=== PATIENT | female | born 1955 | race Caucasian/White ===

== ENCOUNTER 2016-08-08 16:58 | Inpatient (IN) | payer MEDICARE, OTHER ==
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
--- NOTE | ~2016-08-08 | CR72 ---
[facility] A Service of [facility] & [facility] RADIOLOGY TEXT RESULTS PATIENT: JANKI VARGHESE LOCATION: [facility] 320-01 : 55 UNIT #: [id number] AGE: [address]: Kelly Ybarra MD SEX: F ORDER DR: [id number] [facility] [address] [facility]. [place], [place] [address] [id number] E MR#: [id number] Acc #: [id number] NAME: JANKI VARGHESE : 1955 SEX: F STUDY DATE/TIME: 08/08/2016 15:07 UNIT: [facility] ROOM: STUDY DESCRIPTION: CR Chest Single View Portable Attending Physician: Dharmesh Frazier M.D. Referring Physician: No Primary Care Physician Ordering Physician: Dharmesh Frazier M.D. Primary Care Physician: No Primary Care Physician MEDICAL IMAGING REPORT This report is preliminary unless electronic signature is present EXAM Portable chest x-ray 08/08/2016 HISTORY Altered mental status. Getting worse. Weakness. Duration 4 weeks. AP radiograph of the chest is presented. COMPARISON STUDIES Comparison 07/30/2016 and 03/29/2016. FINDINGS Right side chest port unchanged. Heart and mediastinum normal in size and contour. Lung volumes moderate. Band-like area of density at the right lung base favored to represent chronic scarring seen in slightly different obliquity than on the prior studies. There is no compelling evidence of pneumonia or edema. No pleural effusion or pneumothorax. No suspicious nodule. Bowel gas pattern in upper abdomen unremarkable. Note made of surgical clips superimposed over the left paracentral upper thorax. Stable. Dictated by... Nba Parry M.D. THIS IS AN ELECTRONICALLY VERIFIED REPORT Nba Parry M.D. at 08/09/2016 12:32 PM Johnny TD: 08/08/2016 18:22 JOB #: [id number] MEDICAL IMAGING REPORT COPY
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
--- NOTE | ~2016-08-08 | CT71 ---
[facility] A Service of [facility] & [facility] RADIOLOGY TEXT RESULTS PATIENT: JANKI VARGHESE LOCATION: [facility] 320-01 : 55 UNIT #: [id number] AGE: [address]: Kelly Ybarra MD SEX: F ORDER DR: [id number] [facility] [address] [facility]. [place], [place] [address] [id number] I MR#: [id number] Acc #: [id number] NAME: JANKI VARGHESE. : 1955 SEX: F STUDY DATE/TIME: 08/10/2016 8:42 UNIT: [facility] ROOM: 320 STUDY DESCRIPTION: CT Head Wo Contrast Attending Physician: Kelly Ybarra M.D. Referring Physician: No Primary Care Physician Ordering Physician: Kt Stover M.D. Primary Care Physician: No Primary Care Physician MEDICAL IMAGING REPORT This report is preliminary unless electronic signature is present EXAM Head CT without HISTORY Confusion since 08/08/2016, cough since 08/08/2016. History of lymphoma, diabetes, stomach cancer. COMMENT Routine noncontrast head CT is reviewed. This CT exam was performed with one or more of the following radiation dose reduction techniques: automatic exposure control, adjustment of mA and/or kV according to patient size, and iterative reconstruction. COMPARISON There is comparison study from 07/30/2016. FINDINGS The mastoid air cells are clear. The visualized paranasal sinuses are clear. There is no evidence for acute intracranial hemorrhage or extraaxial fluid collection. The ventricles are normal in size and configuration and the rangel-white junction is well-maintained. A few small foci of low attenuation in the basal ganglia are likely tiny lacunes or prominent perivascular spaces. There is no intracranial mass effect. Basilar cisterns are patent. Noncontrast study would not be sensitive for intracranial metastatic disease but there is no acute cortical infarct suspected. IMPRESSION 1. No acute intracranial abnormality. STAT * RESULT ST[facility]. [facility] A Service of [facility] & [facility] RADIOLOGY TEXT RESULTS PATIENT: JANKI VARGHESE LOCATION: [place] [address]- : [birth year] UNIT #: [id number] AGE: [address]: Kelly Ybarra MD SEX: F ORDER DR: Dictated by... Elli Newman M.D. THIS IS AN ELECTRONICALLY VERIFIED REPORT Elli Newman M.D. at 08/10/2016 10:58 AM [place] TD: 08/10/2016 09:38 JOB #: [id number] MEDICAL IMAGING REPORT COPY
--- NOTE | ~2016-08-08 | EKG ---
PATIENT: JANKI VARGHESE UNIT #: [id number] Ventricular Rate: 71 BPM Atrial Rate: 71 BPM P-R Interval: 156 ms QRS Duration: 90 ms Q-T Interval: 394 ms QTC Calculation(Bezet): 428 ms P [place]: 9 degrees Calculated R [place]: 5 degrees Calculated T [place]: 30 degrees Diagnosis Line: Normal sinus rhythm Diagnosis Line: Normal ECG Diagnosis Line: When compared with ECG of 30-JUL-2016 14:49, Diagnosis Line: No significant change was found Diagnosis Line: Confirmed by LYLY OCONNELL MD ([id number]) on 08/09/2016 Diagnosis Line: 6:22:33 PM INTERPRETING MD: ANISH SALCIDO
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
--- NOTE | ~2016-08-08 | CT57 ---
[facility] A Service of [facility] RADIOLOGY TEXT RESULTS PATIENT: JANKI VARGHESE LOCATION: [facility] 320-01 : 55 UNIT #: [id number] AGE: [address]: Kelly Ybarra MD SEX: F ORDER DR: [id number] [facility] [address] [facility]. [place], [place] [address] [id number] I MR#: [id number] Acc #: [id number] NAME: JANKI VARGHESE : 1955 SEX: F STUDY DATE/TIME: 08/10/2016 8:51 UNIT: [address] ROOM: [facility] STUDY DESCRIPTION: CT Chest Wo Cont Attending Physician: Kelly Ybarra M.D. Referring Physician: Primary Care Physician No Ordering Physician: Kt Stover M.D. Primary Care Physician: Primary Care Physician No MEDICAL IMAGING REPORT This report is preliminary unless electronic signature is present EXAM CT chest without contrast 08/10/2016 PROCEDURE Axial unenhanced chest CT with multiplanar reformats. COMPARISON 10/15/2014. HISTORY Cough since 08/08/2016. TECHNIQUE This CT examination was performed with one or more of the following radiation dose reduction techniques: automatic exposure control, adjustment of mA and/or kV according to patient size, and iterative reconstruction. FINDINGS Redemonstrated mostly linear scarring with some slight bronchiectasis along the posterior border of the right major fissure extending to the right posterolateral lung base. That appears stable as does some scarring in the right middle lobe, and there is some atelectasis or scarring at the posterior left base as well but there is no consolidation, effusion, pneumothorax or suspicious nodule. There is no mediastinal mass or adenopathy, though there is a partially calcified area in the left thyroid unchanged since the prior CT. The thoracic aorta is normal in caliber. Images of the upper abdomen are unremarkable. The bony structures are unremarkable. Intraspinal catheter remains in place. [facility] A Service of [facility] RADIOLOGY TEXT RESULTS PATIENT: JANKI VARGHESE LOCATION: [facility] 320-01 : 55 UNIT #: [id number] AGE: [address]: Kelly Ybarra MD SEX: F ORDER DR: IMPRESSION No acute pulmonary parenchymal abnormality. No acute infiltrate, effusion, pneumothorax or suspicious nodule. There are some chronic changes and/or areas of scarring but no acute findings. Dictated by... Markie Sarah M.D. THIS IS AN ELECTRONICALLY VERIFIED REPORT Markie Sarah M.D. at 08/13/2016 4:32 PM LANCE/marly TD: 08/10/2016 14:05 JOB #: [id number] MEDICAL IMAGING REPORT COPY
--- NOTE | ~2016-08-08 | EKG ---
PATIENT: JANKI VARGHESE UNIT #: [id number] Ventricular Rate: 75 BPM Atrial Rate: 75 BPM P-R Interval: 132 ms QRS Duration: 82 ms Q-T Interval: 370 ms QTC Calculation(Bezet): 413 ms P [place]: 7 degrees Calculated R [place]: 10 degrees Calculated T [place]: 48 degrees Diagnosis Line: Normal sinus rhythm Diagnosis Line: Normal ECG Diagnosis Line: When compared with ECG of 08-AUG-2016 15:00, Diagnosis Line: No significant change was found Diagnosis Line: Confirmed by SUSANA GOMEZ MD ([id number]) on Diagnosis Line: 08/14/2016 4:07:55 PM INTERPRETING MD: JASON SALCIDO
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
[2016-08-08 16:50] LABS: BASOPHIL% 0.4 % (0-2.5); EOSINOPHIL# 0.2 X10e3 (0-0.7); EOSINOPHIL% 1.7 % (0.0-7.0); HEMATOCRIT 33.9 % (35.0-45.0); HEMOGLOBIN 11.1 gm/dL (12.0-16.0); LYMPHOCYTE# 2.1 X10e3 (1.0-3.5); LYMPHOCYTE% 20.9 % (17.0-45.0); MEAN CELL VOLUME 89.6 FL (83-96); MEAN CORPUSCULAR HEMOGLOBIN 29.4 PG (28-34); MEAN CORPUSCULAR HGB CONC 32.8 g/dL (30-36); MEAN PLATELET VOLUME 8.4 FL (6.5-11.5); MONOCYTE# 0.7 X10e3 (0-1.0); MONOCYTE% 6.7 % (3.0-12.0); NEUTROPHIL# 7.2 X10e3 (1.5-7.1); NEUTROPHIL% 70.3 % (40-75); PLATELET COUNT 242 X10e3 (140-420); RED BLOOD COUNT 3.78 X10e (3.90-5.30); RED CELL DISTRIBUTION WIDTH 15.4 % (11.0-15.5); WHITE BLOOD COUNT 10.2 X10e3 (4.0-10.5)
[2016-08-08 16:52] LABS: DIFF IND NO
[~2016-08-08 16:58] MED LIST: ACETAMINOPHEN PO; ALBUTEROL2.5 MG/0.5 IH; AMITIZA24 MCG PO; AMITRIPTYLINE150 MG PO; AMITRYPTYLINE; AMITRYPTYLINE PO; AMOXICILLIN PO; ANTIVERT PO; ARIXTRA2.5 MG/0.5 INJ; ASPIRIN PO; ASPIRINEC PO; ATIVAN0.5 MG PO; BACTRIM DS TABL1 TA1 PO; BONIVA150 MG PO; BUSPAR PO; BUSPAR5 MG PO; CALCIUM + D 6001 TA1 PO; CALCIUM 500 + D1 TAB PO; CALTRATE PLUS T1 TAB PO; CIPRO PO; CITALOPRAM HBR40 MG PO; CLARITIN10 M2 PO; COMBIVENT U/D3 M1 NEB; COMBIVENT U/D3 M3 INH; CYMBALTA PO; CYMBALTA30 MG PO; DICYCLOMINE HCL10 MG PO; DIFLORASONE TOP; DILAUDID; DILAUDID PAIN PUMP; DILAUDID SUBQ; EFFEXOR; FERRO-TIME325 MG PO; FISH OIL 1,0001 CAP PO; FISH OIL 1,0001 EACH PO; FISH OIL500 MG PO; FLEXERIL10 MG PO; FLONASE16 GM; GABAPENTIN400 M2 PO; GABAPENTIN600 MG PO; GABAPENTIN800 MG PO; HYDROCODONE-APA1 T30 PO; KEFLEX250 M1 PO; KLONOPIN; KLONOPIN PO; KLONOPIN0.5 MG PO; KLONOPIN1 MG PO; LEVAQUIN PO; LEVAQUIN250 MG PO; LEXAPRO; LEXAPRO PO; LEXAPRO20 MG PO; LIPITOR20 MG DOB; LORTAB 2.5/5001 TAB PO; METFORMIN HCL1000 M1 PO; METFORMIN HCL500 M1 PO; METFORMIN PO; MORPHINE; MULTI VITAMIN1 EACH PO; MULTI-VIT/MIN P1 TAB PO; NEURONTIN; NEURONTIN300 MG PO; NEXIUM PO; NICOTINE TRANSD21 MG EXT; NITROGYLCERIN SUBLINGUAL; NORCO 10-325 TA1 TAB PO; NORCO 5/325 TAB1 TAB PO; NORCO 7.5/325 T1 TAB PO; OMNICEF300 M1 PO; OXYCONTIN PO; OXYGEN; PEN-VEE K PO; PERCOCET10 PO; PHENERGAN PO; PHENERGAN25 M1 PO; PHENERGAN25 MG PO; PRAVACHOL PO; PRAVACHOL80 MG PO; PRAVASTATIN SOD20 MG PO; PRAVASTATIN SOD40 MG PO; PREDNISONE PO; PREDNISONE10 MG PO; PRILOSEC PO; PRILOSEC40 MG PO; PROMETHAZINE HC25 MG PO; PROTONIX PO; REMERON PO; SYMBICORT INH; VOLTAREN50 MG PO; VORICONAZOLE200 MG PO; XANAX0.5 M1 DOB; XANAX0.5 MG PO
[2016-08-08 17:04] LABS: PARTIAL THROMBOPLASTIN TIME 27.1 SECONDS (23.5-31.3); PROTHROMBIN TIME (PATIENT) 10.7 SECONDS (9.6-11.5)
[2016-08-08 17:13] LABS: ALBUMIN SERUM 3.3 g/dL (3.5-5.0); ALKALINE PHOSPHATASE 105 U/L (32-92); ALT (SGPT) 29 U/L (10-40); AST (SGOT) 33 U/L (10-42); BILIRUBIN, DIRECT 0.1 mg/dL (0.0-0.2); BILIRUBIN,INDIRECT 0.2 mg/dL (0.0-0.9); BILIRUBIN,TOTAL 0.3 mg/dL (0.2-2.0); BLOOD UREA NITROGEN 15 mg/dL (9-23); BUN/CREATININE RATIO 13.63; CALCIUM SERUM 8.4 mg/dL (8.4-10.2); CARBON DIOXIDE 29 mmol/L (22-31); CHLORIDE 103 mmol/L (100-111); CREATININE SERUM 1.1 mg/dL (0.6-1.4); GLOM FILT RATE Estimated 53.7 mL/min (>60); GLUCOSE FASTING 84 mg/dL (70-110); SALICYLATE <4.0 mg/dL; SODIUM 139 mmol/L (135-145)
[2016-08-08 17:16] LABS: ACETAMINOPHEN <10 ug/mL; ALCOHOL BLOOD <5 mg/dL (0)
[2016-08-08 18:58] LABS: URINE SOURCE CLEAN CATCH
[2016-08-08 19:04] LABS: URINE APPEARANCE TURBID; URINE BILIRUBIN NEG (NEG); URINE BLOOD 2+ (NEG); URINE COLOR YELLOW; URINE GLUCOSE 250 MG/DL (NEG); URINE KETONE NEG (NEG); URINE LEUKOCYTE ESTERASE 3+ (NEG); URINE NITRATE NEG (NEG); URINE PROTEIN 1+ (NEG); URINE SPECIFIC GRAVITY 1.019 (1.003-1.035); URINE UROBILINOGEN 0.2 MG/DL (NEG)
[2016-08-08 19:06] LABS: CULTURE INDICATED? YES; URINE BACTERIA AUWI NEG (NEGATIVE); URINE SQUAMOUS EPITHELIAL CELL FEW /[HPF]; UWBCS1 AUWI INNUM (0-5)
[2016-08-08 19:21] LABS: AMPHETAMINE NEG (NEG); BARBITURATES NEG (NEG); BENZODIAZEPINES POS (NEG); COCAINE NEG (NEG); MARIJUANA NEG (NEG); OPIATES POS (NEG); TRICYCLIC ANTIDEPRESSANTS POS (NEG); U METHADONE NEG (NEG)
[2016-08-08] MEDS ORDERED: SEROQUEL PO (21:07)
[2016-08-08] MEDS ORDERED: ALPRAZOLAM0.5 MG PO (21:09)
[2016-08-08] MEDS ORDERED: RESTASIS32 EA OU (21:09)
[2016-08-08] MEDS ORDERED: AMITRIPTYLINE150 MG PO (21:09)
[2016-08-08] MEDS ORDERED: WELLBUTRIN XL150 M2 PO (21:09)
[2016-08-08] MEDS ORDERED: SYMBICORT INH (21:09)
[2016-08-08] MEDS ORDERED: METFORMIN PO (21:09)
[2016-08-08] MEDS ORDERED: LYRICA75 MG PO (21:09)
[2016-08-08] MEDS ORDERED: OMEPRAZOLE40 M1 PO (21:09)
[2016-08-08] MEDS ORDERED: PRAVASTATIN SOD40 MG PO (21:09)
[2016-08-08] MEDS ORDERED: CYMBALTA30 M1 PO (21:09)
[2016-08-09 12:43] LABS: BLOOD UREA NITROGEN 10 mg/dL (9-23); CARBON DIOXIDE 28 mmol/L (22-31); CHLORIDE 110 mmol/L (100-111); CREATININE SERUM 0.8 mg/dL (0.6-1.4); GLOM FILT RATE Estimated ABOVE60 mL/min (>60); GLUCOSE FASTING 94 mg/dL (70-110); POTASSIUM 3.7 mmol/L (3.5-5.1); SODIUM 139 mmol/L (135-145)
[2016-08-10 09:38] LABS: HEMATOCRIT 31.3 % (35.0-45.0); HEMOGLOBIN 10.1 gm/dL (12.0-16.0); MEAN CELL VOLUME 88.7 FL (83-96); MEAN CORPUSCULAR HEMOGLOBIN 28.6 PG (28-34); MEAN CORPUSCULAR HGB CONC 32.3 g/dL (30-36); MEAN PLATELET VOLUME 7.7 FL (6.5-11.5); RED BLOOD COUNT 3.53 X10e (3.90-5.30); RED CELL DISTRIBUTION WIDTH 15.4 % (11.0-15.5)
[2016-08-10 09:46] LABS: WHITE BLOOD COUNT 4.7 X10e3 (4.0-10.5)
[2016-08-10 10:19] LABS: BLOOD UREA NITROGEN 7 mg/dL (9-23); CALCIUM SERUM 8.7 mg/dL (8.4-10.2); CARBON DIOXIDE 27 mmol/L (22-31); CHLORIDE 106 mmol/L (100-111); CREATININE SERUM 0.7 mg/dL (0.6-1.4); GLOM FILT RATE Estimated ABOVE60 mL/min (>60); GLUCOSE FASTING 89 mg/dL (70-110); POTASSIUM 3.4 mmol/L (3.5-5.1); SODIUM 142 mmol/L (135-145)
[2016-08-11 11:29] LABS: BLOOD UREA NITROGEN 7 mg/dL (9-23); BUN/CREATININE RATIO 8.75; CALCIUM SERUM 8.4 mg/dL (8.4-10.2); CARBON DIOXIDE 26 mmol/L (22-31); CHLORIDE 113 mmol/L (100-111); CREATININE SERUM 0.8 mg/dL (0.6-1.4); GLOM FILT RATE Estimated ABOVE60 mL/min (>60); GLUCOSE FASTING 170 mg/dL (70-110); POTASSIUM 3.7 mmol/L (3.5-5.1); SODIUM 142 mmol/L (135-145)
[2016-08-13 09:37] LABS: BLOOD UREA NITROGEN 7 mg/dL (9-23); BUN/CREATININE RATIO 7.77; CALCIUM SERUM 8.1 mg/dL (8.4-10.2); CARBON DIOXIDE 26 mmol/L (22-31); CHLORIDE 112 mmol/L (100-111); CREATININE SERUM 0.9 mg/dL (0.6-1.4); GLOM FILT RATE Estimated ABOVE60 mL/min (>60); GLUCOSE FASTING 81 mg/dL (70-110); POTASSIUM 3.7 mmol/L (3.5-5.1); SODIUM 145 mmol/L (135-145)
[2016-08-14 05:55] LABS: MEAN CELL VOLUME 89.8 FL (83-96); MEAN CORPUSCULAR HEMOGLOBIN 28.8 PG (28-34); MEAN CORPUSCULAR HGB CONC 32.1 g/dL (30-36); MEAN PLATELET VOLUME 7.7 FL (6.5-11.5); RED BLOOD COUNT 3.46 X10e (3.90-5.30); RED CELL DISTRIBUTION WIDTH 15.7 % (11.0-15.5); WHITE BLOOD COUNT 4.8 X10e3 (4.0-10.5)
[2016-08-15 07:06] LABS: BLOOD UREA NITROGEN 7 mg/dL (9-23); BUN/CREATININE RATIO 7.77; CALCIUM SERUM 8.6 mg/dL (8.4-10.2); CARBON DIOXIDE 27 mmol/L (22-31); CHLORIDE 110 mmol/L (100-111); CREATININE SERUM 0.9 mg/dL (0.6-1.4); GLOM FILT RATE Estimated ABOVE60 mL/min (>60); GLUCOSE FASTING 85 mg/dL (70-110); POTASSIUM 3.9 mmol/L (3.5-5.1); SODIUM 146 mmol/L (135-145)
== END 2016-08-15 13:33 | DRG 935 ==
LOC: CED 16:58 → CEDOF 20:40 → C3A PCU 08-09 10:20
PROVIDERS: Emergency Medicine; Hospitalist; Physician Assistant Medical; Surgery
PROC: 0HBMXZZ Excision of Right Foot Skin, External Approach (ICD-10-PCS; principal; 2016-08-13 08:30)
DX: T25.021A Burn of unspecified degree of right foot, initial encounter (principal); L03.115 Cellulitis of right lower limb; R56.9 Unspecified convulsions; N39.0 Urinary tract infection, site not specified; X10.0XXA Contact with hot drinks, initial encounter; Y92.099 Unspecified place in other non-institutional residence as the place of occurrence of the external cause; R41.82 Altered mental status, unspecified; J44.9 Chronic obstructive pulmonary disease, unspecified; Z87.891 Personal history of nicotine dependence; G89.29 Other chronic pain; F41.9 Anxiety disorder, unspecified; Z92.3 Personal history of irradiation; Z92.21 Personal history of antineoplastic chemotherapy; Z85.72 Personal history of non-Hodgkin lymphomas; E11.9 Type 2 diabetes mellitus without complications; Z79.84 Long term (current) use of oral hypoglycemic drugs; E87.6 Hypokalemia; R60.0 Localized edema; F32.9 Major depressive disorder, single episode, unspecified; Z96.651 Presence of right artificial knee joint
CPT/HCPCS: 36415; 70450; 71010; 71250; 80048; 80076; 80202; 80307; 81003; 82140; 82947; 85025; 85027; 85610; 85730; 87040; 87086; 93005; 94640; 94664; 94760; 96374; 97110; 97116; 97162; 97530; 99285; G0480; G8978-GP; G8979-GP; J0696; J1650; J1815; J2250; J2270; J2310; J2543; J3010; J3370